=== PATIENT | female | born 1975 | race African-American/Black ===

== ENCOUNTER 2018-01-12 08:10 | Outpatient (CLI) | payer OTHER | END 2018-01-12 21:23 | disposition home or self-care (01) | LOC: SUS 08:10 | PROVIDERS: ATTEND Specialist | DX: D25.9 Leiomyoma of uterus, unspecified (principal) | CPT/HCPCS: 76830-TC; 76857 ==

== ENCOUNTER 2018-04-21 08:20 | Day surgery (SDC) | payer OTHER ==
[2018-04-20 11:23] LABS: BILIRUBIN,URINE NEGATIVE (NEGATIVE); BLOOD, URINE 2+ (NEGATIVE); CLARITY/URINE HAZY (CLEAR); COLOR,URINE YELLOW (YELLOW); GLUCOSE,URINE NEGATIVE (NEGATIVE); KETONES,URINE NEGATIVE (NEGATIVE); LEUKOCYTE ESTERASE ,URINE NEGATIVE (NEGATIVE); NITRITE, URINE NEGATIVE (NEGATIVE); PROTEIN URINE NEGATIVE (NEGATIVE); UROBILINOGEN,URINE 0.2 (0.2-1.0)
[2018-04-20 11:55] LABS: BACTERIA,URINE FEW /HPF (None Seen); WBC,URINE NONE SEEN /HPF (0-3)
[2018-04-20 11:56] LABS: HEMOGLOBIN 11.3 g/dL (12.0-16.0); MEAN CORPUSCULAR HEMOGLOBIN 27 pg (27-31); MEAN CORPUSCULAR HGB CONC 31 % (32-36); MEAN CORPUSCULAR VOLUME 85 fL (79.0-98.0); MUCUS,URINE 2+ /LPF (None Seen); PLATELET COUNT (AUTO) 309 K/uL (130-430); RED BLOOD CELL COUNT(AUTO) 4.22 MIL/uL (4.2-6.2); RED CELL DISTRIBUTION WIDTH 17.1 % (9.0-15.0); URINE AMORPHOUS URATE 2+ /HPF (None Seen); WHITE BLOOD COUNT (AUTO) 4.3 K/uL (4.8-10.8)
[2018-04-20 11:57] LABS: BASOPHILS # (AUTO) 0.1 K/uL (0.0-0.2); BASOPHILS % (AUTO) 2.2 % (0.0-2.0); EOSINOPHILS # (AUTO) 0.1 K/uL (0.0-0.4); EOSINOPHILS % (AUTO) 1.8 % (0.0-4.0); LYMPHOCYTES # (AUTO) 1.2 K/uL (1.0-5.5); LYMPHOCYTES % (AUTO) 28.8 % (20.5-51.5); MONOCYTES # (AUTO) 0.3 K/uL (0.0-1.0); MONOCYTES % (AUTO) 7.5 % (1.7-9.3); NEUTROPHILS # (AUTO) 2.6 K/uL (1.8-7.7); NEUTROPHILS % (AUTO) 59.7 % (40.0-70.0)
[~2018-04-21] VITALS: Ht 165.1 cm; Wt 86.6 kg
[2018-04-21] MEDS: MEPERIDINE HCL/PF 25 MG/ML DISP.SYRIN IVP PRN ×2 (01:32→20:41)
[~2018-04-21 08:20] MED LIST: CEFAZOLIN SOD 1 GM in D5W 50 ML IV ONE
[2018-04-21 10:49] LABS: CALCIUM 8.9 mg/dL (8.4-11.0); CREATININE 0.79 mg/dL (0.55-1.30); POTASSIUM 3.9 mmol/L (3.5-5.1)
[2018-04-21] MEDS ORDERED: fentaNYL CITRATE/PF 100 MCG/2 ML AMP IVP PRN (14:15)
[2018-04-21] MEDS ORDERED: ONDANSETRON HCL 4 MG/2 ML VIAL IVP PRN ×2 (14:15→18:00)
[2018-04-21] MEDS ORDERED: KETOROLAC TROMETHAMINE 30 MG VIAL IVP PRN (14:15)
[2018-04-21] MEDS ORDERED: ROPIVACAINE HCL/PF 0.2% (NAROPIN) 200 ML PLAST..BAG EP ONE (14:35)
[2018-04-21] MEDS ORDERED: ONDANSETRON HCL 4 MG/2 ML VIAL IVP ONE (14:36)
[2018-04-21] MEDS ORDERED: GLYCOPYRROLATE 0.2 MG/ML VIAL IJ ONE (14:36)
[2018-04-21] MEDS ORDERED: SEVOFLURANE 15 MIN GAS INH ONE (14:36)
[2018-04-21] MEDS ORDERED: FUROSEMIDE 20 MG/2 ML VIAL IVP ONE (14:36)
[2018-04-21] MEDS ORDERED: LR 1,000 ML IV.SOLN IV ONE (14:36)
[2018-04-21] MEDS ORDERED: KETOROLAC TROMETHAMINE 30 MG VIAL IVP ONE (14:36)
[2018-04-21] MEDS ORDERED: BUPIVACAINE /PF 0.5% 30 ML VIAL INJ ONE (14:36)
[2018-04-21] MEDS ORDERED: NS 1000 ML IV.SOLN IV ONE (14:36)
[2018-04-21] MEDS ORDERED: DEXTROSE 50% JECT 50 ML DISP.SYRIN IVP ONE (14:36)
[2018-04-21] MEDS ORDERED: ROCURONIUM BROMIDE 10 MG/ML (ZEMURON) IV ONE (14:36)
[2018-04-21] MEDS ORDERED: BUPIVACAINE /PF 0.25% 30 ML VIAL INJ ONE (14:36)
[2018-04-21] MEDS ORDERED: MIDAZOLAM HCL 5 MG/5 ML VIAL IVP ONE (14:36)
[2018-04-21] MEDS ORDERED: ceFAZolin SODIUM 1 GM VIAL IV ONE (14:36)
[2018-04-21] MEDS ORDERED: PROPOFOL 200MG/ 20ML VIAL (DIPRIVAN) IV ONE (14:36)
[2018-04-21] MEDS ORDERED: fentaNYL CITRATE 250 MCG/5 ML AMP IV ONE (14:36)
[2018-04-21] MEDS ORDERED: WATER FOR IRRIGATION,STERILE 1,000 ML IRRIG.SOLN IR ONE (14:36)
[2018-04-21] MEDS ORDERED: OXYCODONE/ACETAMINOPHEN 5-325 TABLET PO PRN (18:00)
[2018-04-21] MEDS ORDERED: HYDROcodone/ACETAMIN 5-325 MG TAB (NORCO/ VICODIN) PO PRN (18:00)
[2018-04-21] MEDS ORDERED: ONDANSETRON HCL 4 MG/2 ML VIAL ONE (18:00)
[2018-04-21] MEDS: fentaNYL CITRATE/PF 100 MCG/2 ML AMP IVP PRN ×2 (18:09→18:23)
[2018-04-21] MEDS ORDERED: fentaNYL CITRATE/PF 100 MCG/2 ML AMP ONE (18:11)
[2018-04-21] MEDS ORDERED: PROMETHAZINE HCL 25 MG/ML AMP ONE (18:12)
[2018-04-21] MEDS ORDERED: PHENAZOPYRIDINE HCL 100 MG TABLET PO PRN (20:00)
[2018-04-21] MEDS: SIMETHICONE 80 MG TAB.CHEW PO SCH (20:40)
[2018-04-21 22:00] VITALS: BP_SYST 125
[2018-04-22] MEDS ORDERED: PHENAZOPYRIDINE HCL 100 MG TABLET ONE (01:04)
[2018-04-22] MEDS: OXYCODONE/ACETAMINOPHEN 5-325 TABLET PO PRN ×4 (04:24→20:49)
[2018-04-22] MEDS: SIMETHICONE 80 MG TAB.CHEW PO SCH ×3 (10:25→20:13)
[2018-04-22] MEDS ORDERED: PROMETHAZINE HCL 25 MG/ML AMP IM PRN (10:30)
[2018-04-22] MEDS ORDERED: MEPERIDINE HCL/PF 100 MG/ML AMP IM PRN (10:30)
[2018-04-22] MEDS ORDERED: MEPERIDINE HCL/PF 100 MG/ML AMP ONE (10:35)
[2018-04-22] MEDS ORDERED: PROMETHAZINE HCL 25 MG/ML AMP ONE (10:36)
== END 2018-04-22 20:36 | disposition home or self-care (01) ==
LOC: SMU 08:20 → SDS 08:20 → SPU 20:15 → SDS 04-22 20:36
PROVIDERS: ATTEND Specialist
DX: D25.2 Subserosal leiomyoma of uterus (principal); D25.1 Intramural leiomyoma of uterus; N83.8 Other noninflammatory disorders of ovary, fallopian tube and broad ligament; Z98.890 Other specified postprocedural states; Z79.899 Other long term (current) drug therapy; Z68.30 Body mass index [BMI] 30.0-30.9, adult
CPT/HCPCS: 36415 ×2; 58554; 80048; 81000; 84703; 85025; 88307; C1727; J0690; J1885; J1940; J2175 ×3; J2250; J2405; J2550 ×2; J2704; J3010 ×2; J3490 ×3; J7030; J7060; J7120; E0190

== ENCOUNTER 2018-12-29 08:02 | Day surgery (SDC) | payer OTHER ==
[2018-12-28 11:40] LABS: BASOPHILS # (AUTO) 0.1 K/uL (0.0-0.2); EOSINOPHILS # (AUTO) 0.1 K/uL (0.0-0.4); EOSINOPHILS % (AUTO) 1.2 % (0.0-4.0); HEMATOCRIT 43.9 % (36-48); HEMOGLOBIN 14.4 g/dL (12.0-16.0); LYMPHOCYTES # (AUTO) 1.3 K/uL (1.0-5.5); LYMPHOCYTES % (AUTO) 23.4 % (20.5-51.5); MEAN CORPUSCULAR HEMOGLOBIN 30 pg (27-31); MEAN CORPUSCULAR HGB CONC 33 % (32-36); MEAN CORPUSCULAR VOLUME 92 fL (79.0-98.0); MONOCYTES # (AUTO) 0.4 K/uL (0.0-1.0); MONOCYTES % (AUTO) 7.6 % (1.7-9.3); NEUTROPHILS # (AUTO) 3.7 K/uL (1.8-7.7); NEUTROPHILS % (AUTO) 66.8 % (40.0-70.0); PLATELET COUNT (AUTO) 247 K/uL (130-430); RED BLOOD CELL COUNT(AUTO) 4.77 MIL/uL (4.2-6.2); RED CELL DISTRIBUTION WIDTH 12.8 % (9.0-15.0); WHITE BLOOD COUNT (AUTO) 5.6 K/uL (4.8-10.8)
[2018-12-28 11:49] LABS: BILIRUBIN,URINE NEGATIVE (NEGATIVE); BLOOD, URINE 1+ (NEGATIVE); CLARITY/URINE SL CLOUDY (CLEAR); COLOR,URINE YELLOW (YELLOW); GLUCOSE,URINE NEGATIVE (NEGATIVE); KETONES,URINE NEGATIVE (NEGATIVE); LEUKOCYTE ESTERASE ,URINE NEGATIVE (NEGATIVE); NITRITE, URINE NEGATIVE (NEGATIVE); PROTEIN URINE NEGATIVE (NEGATIVE); UROBILINOGEN,URINE 0.2 (0.2-1.0)
[2018-12-28 12:06] LABS: BACTERIA,URINE MODERATE /HPF (None Seen); WBC,URINE 0-3 /HPF (0-3)
[~2018-12-29] VITALS: Ht 175.3 cm; Wt 92.5 kg
[2018-12-29] MEDS ORDERED: ONDANSETRON HCL 4 MG/2 ML VIAL IVP PRN (08:15)
[2018-12-29] MEDS ORDERED: fentaNYL CITRATE/PF 100 MCG/2 ML AMP IVP PRN (08:15)
[2018-12-29] MEDS ORDERED: CEFAZOLIN SOD 2 GM in D5W 50 ML IV ONE (09:30)
[2018-12-29] MEDS ORDERED: ONDANSETRON HCL 4 MG/2 ML VIAL IM PRN (10:45)
[2018-12-29] MEDS ORDERED: HYDROcodone/ACETAMIN 5-325 MG TAB (NORCO/ VICODIN) PO PRN (10:45)
[2018-12-29] MEDS ORDERED: BUPIVACAINE /EPINEPHRINE/PF 0.25% 30 ML VIAL INJ ONE (10:55)
[2018-12-29] MEDS ORDERED: ONDANSETRON HCL 4 MG/2 ML VIAL ONE (10:55)
[2018-12-29] MEDS ORDERED: LR 1,000 ML IV.SOLN IV ONE (10:55)
[2018-12-29] MEDS ORDERED: fentaNYL CITRATE/PF 100 MCG/2 ML AMP ONE ×2 (10:55→11:21)
[2018-12-29] MEDS ORDERED: MIDAZOLAM HCL 5 MG/ML VIAL (VERSED) IV ONE (10:55)
[2018-12-29] MEDS ORDERED: NS IRRIG SOLN 1000 ML IR ONE (10:55)
[2018-12-29] MEDS ORDERED: KETOROLAC TROMETHAMINE 30 MG VIAL ONE (10:55)
[2018-12-29] MEDS ORDERED: PROPOFOL 200MG/ 20ML VIAL (DIPRIVAN) IV ONE (10:55)
[2018-12-29] MEDS ORDERED: SEVOFLURANE 15 MIN GAS INH ONE (10:55)
[2018-12-29] MEDS: fentaNYL CITRATE/PF 100 MCG/2 ML AMP IVP PRN ×2 (11:09→11:20)
[2018-12-29 11:45] VITALS: BP_SYST 126
[2018-12-29] MEDS ORDERED: HYDROcodone/ACETAMIN 5-325 MG TAB (NORCO/ VICODIN) ONE (12:39)
[2018-12-29] MEDS ORDERED: CONJUGATED ESTROGENS VAGINAL CREAM 42.5 GM .APPL VG SCH (21:00)
== END 2018-12-29 13:35 | disposition home or self-care (01) ==
LOC: SMU 08:02 → SDS 08:02
PROVIDERS: ATTEND Specialist
DX: N93.9 Abnormal uterine and vaginal bleeding, unspecified (principal); S31.41XA Laceration without foreign body of vagina and vulva, initial encounter; Z90.710 Acquired absence of both cervix and uterus; W19.XXXA Unspecified fall, initial encounter; Y93.89 Activity, other specified; Y92.89 Other specified places as the place of occurrence of the external cause; Y99.8 Other external cause status
CPT/HCPCS: 36415; 57200; 81000; 85025; 87086; J0690; J1885; J2250; J2405; J2704; J3010; J3490; J7060; J7120

== ENCOUNTER 2020-03-21 05:50 | Day surgery (SDC) | payer OTHER ==
[2020-03-15 14:24] LABS: BASOPHILS % (AUTO) 0.8 % (0.0-2.0); EOSINOPHILS # (AUTO) 0.1 K/uL (0.0-0.4); EOSINOPHILS % (AUTO) 1.5 % (0.0-4.0); HEMATOCRIT 42.1 % (36-48); HEMOGLOBIN 13.8 g/dL (12.0-16.0); LYMPHOCYTES # (AUTO) 1.3 K/uL (1.0-5.5); LYMPHOCYTES % (AUTO) 25.3 % (20.5-51.5); MEAN CORPUSCULAR HEMOGLOBIN 30 pg (27-31); MEAN CORPUSCULAR HGB CONC 33 % (32-36); MEAN CORPUSCULAR VOLUME 90 fL (79.0-98.0); MONOCYTES # (AUTO) 0.4 K/uL (0.0-1.0); MONOCYTES % (AUTO) 7.9 % (1.7-9.3); NEUTROPHILS # (AUTO) 3.3 K/uL (1.8-7.7); NEUTROPHILS % (AUTO) 64.5 % (40.0-70.0); PLATELET COUNT (AUTO) 262 K/uL (130-430); RED BLOOD CELL COUNT(AUTO) 4.66 MIL/uL (4.2-6.2); RED CELL DISTRIBUTION WIDTH 12.9 % (9.0-15.0)
[2020-03-15 14:30] LABS: HCG,QUAL RESULT NEGATIVE (NEGATIVE)
[2020-03-15 14:40] LABS: BILIRUBIN,URINE NEGATIVE (NEGATIVE); BLOOD, URINE 1+ (NEGATIVE); CLARITY/URINE CLEAR (CLEAR); COLOR,URINE YELLOW (YELLOW); GLUCOSE,URINE NEGATIVE (NEGATIVE); KETONES,URINE NEGATIVE (NEGATIVE); LEUKOCYTE ESTERASE ,URINE NEGATIVE (NEGATIVE); NITRITE, URINE NEGATIVE (NEGATIVE); PROTEIN URINE NEGATIVE (NEGATIVE); UROBILINOGEN,URINE 0.2 (0.2-1.0)
[2020-03-15 14:45] LABS: BACTERIA,URINE FEW /HPF (None Seen); WBC,URINE 0-3 /HPF (0-3)
[~2020-03-21] VITALS: Ht 167.6 cm; Wt 102.5 kg
[2020-03-21] MEDS ORDERED: CEFAZOLIN SOD 2 GM in D5W 50 ML IV ONE (07:00)
[2020-03-21] MEDS ORDERED: ONDANSETRON HCL 4 MG/2 ML VIAL IVP PRN ×2 (10:45→11:00)
[2020-03-21] MEDS ORDERED: HYDROcodone/ACETAMIN 5-325 MG TAB (NORCO/ VICODIN) PO PRN (10:45)
[2020-03-21] MEDS ORDERED: OXYCODONE/ACETAMINOPHEN 5-325 TABLET PO PRN ×2 (10:45)
[2020-03-21] MEDS ORDERED: HYDROmorphone 1 MG INJ. 1 MG/ML AMPUL ONE (10:56)
[2020-03-21] MEDS ORDERED: KETOROLAC TROMETHAMINE 30 MG VIAL ONE ×2 (10:59→11:00)
[2020-03-21] MEDS ORDERED: DEXTROSE 50% JECT 50 ML DISP.SYRIN ONE (11:00)
[2020-03-21] MEDS ORDERED: SEVOFLURANE 15 MIN GAS INH ONE (11:00)
[2020-03-21] MEDS ORDERED: ONDANSETRON HCL 4 MG/2 ML VIAL ONE ×2 (11:00→11:23)
[2020-03-21] MEDS ORDERED: HYDROmorphone 1 MG INJ. 1 MG/ML AMPUL IVP PRN ×2 (11:00)
[2020-03-21] MEDS ORDERED: LR 1,000 ML IV SCH (11:00)
[2020-03-21] MEDS ORDERED: fentaNYL CITRATE/PF 100 MCG/2 ML AMP ONE (11:00)
[2020-03-21] MEDS ORDERED: NEOSTIGMINE METHYLSULFATE 1 MG/ML, 10 ML VIAL ONE (11:00)
[2020-03-21] MEDS ORDERED: ROCURONIUM BROMIDE 10 MG/ML (ZEMURON) ONE (11:00)
[2020-03-21] MEDS ORDERED: NS 1000 ML IV.SOLN IV ONE (11:00)
[2020-03-21] MEDS ORDERED: GLYCOPYRROLATE 0.2 MG/ML VIAL ONE (11:00)
[2020-03-21] MEDS ORDERED: NS IRRIG SOLN 1000 ML IR ONE (11:00)
[2020-03-21] MEDS ORDERED: FUROSEMIDE 20 MG/2 ML VIAL ONE (11:00)
[2020-03-21] MEDS ORDERED: LR 1,000 ML IV.SOLN IV ONE (11:00)
[2020-03-21] MEDS ORDERED: METOCLOPRAMIDE HCL 10 MG/2 ML VIAL ONE (11:00)
[2020-03-21] MEDS ORDERED: METOCLOPRAMIDE HCL 10 MG/2 ML VIAL IVP PRN (11:00)
[2020-03-21] MEDS ORDERED: PROPOFOL 200MG/ 20ML VIAL (DIPRIVAN) IV ONE (11:00)
[2020-03-21] MEDS ORDERED: BUPIVACAINE /EPINEPHRINE/PF 0.25% 30 ML VIAL INJ ONE (11:00)
[2020-03-21] MEDS ORDERED: MIDAZOLAM HCL 5 MG/ML VIAL (VERSED) IV ONE (11:00)
[2020-03-21] MEDS ORDERED: WATER FOR IRRIGATION,STERILE 1,000 ML IRRIG.SOLN IR ONE (11:00)
[2020-03-21] MEDS ORDERED: KETOROLAC TROMETHAMINE 30 MG VIAL IVP PRN ×3 (11:00)
[2020-03-21] MEDS ORDERED: BUPIVACAINE /PF 0.5% 30 ML VIAL ONE (11:00)
[2020-03-21 12:05] VITALS: BP_SYST 133
== END 2020-03-21 15:37 | disposition home or self-care (01) ==
LOC: SMU 05:50 → SDS 05:50
PROVIDERS: ATTEND Specialist
DX: N93.9 Abnormal uterine and vaginal bleeding, unspecified (principal); N80.9 Endometriosis, unspecified; N73.6 Female pelvic peritoneal adhesions (postinfective); E66.01 Morbid (severe) obesity due to excess calories; I48.91 Unspecified atrial fibrillation; Z90.79 Acquired absence of other genital organ(s); Z79.899 Other long term (current) drug therapy; Z20.828 Contact with and (suspected) exposure to other viral communicable diseases
CPT/HCPCS: 36415; 58662; 58999; 64488; 81000; 84703; 85025; 88108; 88305; C1727; C1782; J0690; J1170; J1885; J1940; J2250; J2405; J2704; J2710; J2765; J3010; J3490 ×3; J7030; J7060; J7120; S2900; U0003; E0190